=== PATIENT | female | born 1985 | race Caucasian/White ===

== ENCOUNTER 2018-08-08 07:19 | Emergency (ER) | payer SELFPAY ==
[2018-08-08] MEDS ORDERED: SODIUM CHLORIDE 0.9% 1000ML 1,000 ML IVS ONE (07:42)
[2018-08-08] MEDS ORDERED: ONDANSETRON INJ 4 MG/2 ML VIAL IV ONE (07:42)
[2018-08-08] MEDS ORDERED: MORPHINE SULFATE INJ 10 MG/ML VIAL IV ONE (07:42)
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
[2018-08-08] MEDS ORDERED: POTASSIUM CHLORIDE 20 MEQ TAB PO ONE (09:43)
[2018-08-08 09:57] VITALS: BP 117/76; TEMP 99.3; O2SAT 98
== END 2018-08-08 09:55 | disposition home or self-care (01) ==
LOC: ER 07:19
DX: R11.2 Nausea with vomiting, unspecified (principal); R42 Dizziness and giddiness; M79.10 Myalgia, unspecified site; Z87.891 Personal history of nicotine dependence
CPT/HCPCS: 36415; 80048; 81001; 82550; 85025; J2270; J2405; J7030